=== PATIENT | female | born 1945 | race Hispanic/Latino ===

== ENCOUNTER 2018-08-17 18:42 | Emergency (ER) | payer MEDICARE ==
[2018-08-17] MEDS ORDERED: Sodium Chloride 0.9% 500 ML IV STA (20:16)
[2018-08-17] MEDS ORDERED: Morphine 4 MG/ML VIAL ONE ×2 (20:35→23:04)
[2018-08-17 20:48] LABS: BASO % 0.3 % (0.0-2.0); EOS % 0.1 % (0.0-4.0); HEMOGLOBIN 14.5 g/dL (12.0-16.0); LYMPH # 0.5 K/uL (1.0-4.3); LYMPH % 5.2 % (20.0-40.0); MEAN CELL VOLUME 89.3 fl (81.0-99.0); MEAN CORPUSCULAR HEMOGLOBIN 29.1 pg (27.0-31.0); MEAN CORPUSCULAR HGB CONC 32.6 g/dL (33.0-37.0); MEAN PLATELET VOLUME 9.1 fl (7.2-11.7); MONO # 0.3 K/uL (0.0-0.8); MONO % 3.4 % (0.0-10.0); NEUT # 8.7 K/uL (1.8-7.0); NRBC % 0.1 % (0.0-0.0); PLATELET COUNT 183 K/uL (130-400); PROTHROMBIN TIME 11.2 Seconds (9.8-13.1); RBC 4.97 Mil/uL (3.80-5.20); RED CELL DISTRIBUTION WIDTH 14.6 % (11.5-14.5); WHITE BLOOD COUNT 9.6 K/uL (4.8-10.8)
[2018-08-17] MEDS ORDERED: DiphenhydrAMINE 50 mg/ml Inj IVP STA (20:50)
[2018-08-17] MEDS ORDERED: DiphenhydrAMINE 50 mg/ml Inj ONE (20:50)
[2018-08-17 20:51] LABS: PARTIAL THROMBOPLASTIN TIME 34.4 Seconds (25.6-37.1)
[2018-08-17 20:52] LABS: BLOOD UREA NITROGEN 27 mg/dl (7-17); CALCIUM 9.9 mg/dL (8.4-10.2); GFR NON-AFRICAN AMERICAN 55; LIPASE 45 U/L (23-300)
[2018-08-17] MEDS ORDERED: Morphine 4 MG/ML VIAL IVP STA ×2 (20:52→23:00)
[2018-08-17 21:01] LABS: ALB/GLOB RATIO 1.4 (1.0-2.1); ALBUMIN 4.9 g/dL (3.5-5.0); ALT/SGPT 27 U/L (9-52); AST/SGOT 42 U/L (14-36)
--- NOTE | 2018-08-17 21:23 | ED PDOC ---
HPI: Abdomen Time Seen by Provider: 08/17/18 19:23 Chief Complaint (Nursing): Abdominal Pain Chief Complaint (Provider): Abdominal Pain History Per: Patient History/Exam Limitations: no limitations Onset/Duration Of Symptoms: Hrs (x8) Current Symptoms Are (Timing): Still Present Location Of Pain/Discomfort: RLQ Additional Complaint(s): 73 year old female, with a past medical history of fibromyalgia and HTN from [place], presents to the ED with a sudden onset of constant right sided abdominal pain and mid flank pain since around 14:00 today while carrying a new born baby. Patient reports pain radiates to her back and to her RLQ and is wo rsening since onset. Patient had an episode of nonbloody and nonbilious vomit and some nonbloody loose stools but no diarrhea. She denies urinary symptoms and states she is normally on Percocet and took one extra for pain with no relief. Denies fever or appetite for food. Last time patient ate was breakfast this morning. PMD: none provided Past Medical History Reviewed: Historical Data, Nursing Documentation, Vital Signs Vital Signs: Last Vital Signs Temp 98.4 F 08/17/18 19:11 Pulse 105 H 08/17/18 19:11 Resp 16 08/17/18 19:11 BP 156/101 H 08/17/18 19:11 Pulse Ox 100 08/17/18 19:11 - Medical History PMH: No Chronic Diseases - Surgical History Other surgeries: Right hip surgery and often dislocation; left knee surgery; partial hysterectomy - Family History Family History: States: No Known Family Hx - Social History Current smoker - smoking cessation education provided: No - Home Medications Home Medications: Ambulatory Orders Medication Instructions Recorded Nitrofurantoin Macrocrystals 1 cap PO BID #14 cap 08/17/18 [Macrobid] Ondansetron ODT [Zofran ODT] 1 odt PO Q6 PRN #20 odt 08/17/18 RX: traMADol [Ultram] 50 mg PO TID #15 tab 08/17/18 Tamsulosin [Flomax] 0.4 mg PO DAILY #14 cap 08/17/18 - Allergies Allergies/Adverse Reactions: Allergies Allergy/AdvReac Type Severity Reaction Status Date / Time ketamine Allergy ANAPHYLAXIS Verified 08/17/18 19:16 levofloxacin [From Levaquin] Allergy ANAPHYLAXIS Verified 08/17/18 19:16 Review of Systems ROS Statement: Except As Marked, All Systems Reviewed And Found Negative Gastrointestinal: Positive for: Vomiting, Abdominal Pain (right sided abdominal pain and flank pain). Negative for: Diarrhea Genitourinary Female: Negative for: Dysuria, Hematuria Physical Exam - Reviewed Nursing Documentation Reviewed: Yes Vital Signs Reviewed: Yes - Physical Exam Appears: Positive for: In Acute Distress (painful distress) Head Exam: Positive for: ATRAUMATIC, NORMOCEPHALIC Skin: Positive for: Warm, Dry Eye Exam: Positive for: EOMI, PERRL ENT: Positive for: Other (dry mucous membranes) Neck: Positive for: Painless ROM, Supple Cardiovascular/Chest: Positive for: Regular Rate, Rhythm. Negative for: Murmur Respiratory: Positive for: Normal Breath Sounds. Negative for: Wheezing Gastrointestinal/Abdominal: Positive for: Soft, Tenderness (RLQ and right lateral abdominal tenderness), Other ((-) Gibson's sign). Negative for: Mass, Distended, Guarding, Rebound Back: Positive for: Normal Inspection. Negative for: L CVA Tenderness, R CVA Tenderness Extremity: Positive for: Normal ROM. Negative for: Deformity Lymphatic: Negative for: Adenopathy Neurologic/Psych: Positive for: Alert. Negative for: Motor/Sensory Deficits - Laboratory Results Result Diagrams: 08/17/18 20:34 08/17/18 20:34 Lab Results: PT 11.2 Seconds (9.8-13.1) 08/17/18 20:34 INR 1.0 08/17/18 20:34 APTT 34.4 Seconds (25.6-37.1) 08/17/18 20:34 Total Bilirubin 0.9 mg/dl (0.2-1.3) 08/17/18 20:34 AST 42 U/L (14-36) H 08/17/18 20:34 ALT 27 U/L (9-52) 08/17/18 20:34 Alkaline Phosphatase 102 U/L (38-126) 08/17/18 20:34 Total Protein 8.3 G/DL (6.3-8.2) H 08/17/18 20:34 Albumin 4.9 g/dL (3.5-5.0) 08/17/18 20:34 Globulin 3.4 gm/dL (2.2-3.9) 08/17/18 20:34 Albumin/Globulin Ratio 1.4 (1.0-2.1) 08/17/18 20:34 Lipase 45 U/L (23-300) 08/17/18 20:34 - ECG O2 Sat by Pulse Oximetry: 100 (RA) Pulse Ox Interpretation: Normal Medical Decision Making Medical Decision Making: Initial Impression: RLQ pain Differential includes but not limited to appendicitis, pyelonephritis, renal colic, enteritis, mesenteric ischemia Initial Plan: --Type and screen stat --CT abd/pelvis --CMP --Lactic acid stat --Lipase stat --PTT --Prothrombin time --Benadryl 25mg IV --Morphine 4mg IV --Sodium chloride 1000mL IV --Toradol 15mg IV --Zofran 4mg IV --Blood culture --Urine culture --Urinalysis Name: PRABHU PINO Exam Date: Aug 17, 2018 10:07:40 PM EST Modality Type: CT Description: CT - ABDOMEN AND PELVIS WITH CORONAL AND SAGITTAL MPRS Gender: F Laterality: Not applicable : 49 Referring Physician: Pamela Denis EXAM: CT Abdomen and Pelvis with IV contrast CLINICAL HISTORY: Back/abd pain, vomiting TECHNIQUE: Axial computed tomography images of the abdomen and pelvis with intravenous contrast. 678.77 mGy-cm CONTRAST: With; [id number] 90ML COMPARISON: None provided. FINDINGS: LUNG BASES: Mild atelectasis at the lung bases. LIVER: Unremarkable. GALLBLADDER AND BILE DUCTS: The gallbladder appears within normal limits. No radioopaque gallstones are seen. No biliary ductal dilatation is evident. PANCREAS: Unremarkable. SPLEEN: Unremarkable. ADRENAL GLANDS: Unremarkable. KIDNEYS, URETERS, AND BLADDER: There is moderate to severe right hydroureteronephrosis with perinephric stranding and fluid. Given the presence of fluid, the possibility of ruptured calyx not excluded. The ureter is distended all the way to the ureterovesicular junction where there is a calculus measuring approximately 4 mm on series 2, image 89. It is unclear if this has passed from the right ureterovesicular junction into bladder or not. There is some enhancement of the right ureteral wall suggesting ureteritis. Again, please correlate clinically. The partially distended bladder appears otherwise grossly unremarkable. STOMACH AND BOWEL: There is significant constipation the colon. No evidence for bowel obstruction. APPENDIX: No evidence of acute appendicitis on CT examination. PERITONEUM: No pneumoperitoneum. LYMPH NODES: No lymphadenopathy. REPRODUCTIVE: Unremarkable as visualized. VASCULATURE: No evidence of abdominal aortic aneurysm. BONES: There are bilateral hip prostheses which lead to beam hardening artifact in the mid evaluation the pelvis. There are moderate to severe multilevel degenerative spine changes. IMPRESSION: 1. There is moderate to severe right hydroureteronephrosis with perinephric stranding and fluid. Given the presence of fluid, the possibility of ruptured calyx not excluded. The ureter is distended all the way to the ureterovesicular junction where there is a calculus measuring approximately 4 mm on series 2, image 89. It is unclear if this has passed from the right ureterovesicular junction into bladder or not. 2. There is some enhancement of the right ureteral wall suggesting ureteritis. Again, please correlate clinically. 3. There are bilateral hip prostheses which lead to beam hardening artifact in the mid evaluation the pelvis. 4. There is significant constipation in the colon. Electronically signed on Aug 17, 2018 11:13:43 PM EST by: Manny Ramirez M.D., LISSY Certified By [facility] Trained [facility] and CT Specialist Scribe Attestation: Documented by Eddie Muller acting as a scribe for Pamela Denis MD. Provider Scribe Attestation: All medical record entries made by the Scribe were at my direction and personally dictated by me. I have reviewed the chart and agree that the record accurately reflects my personal performance of the history, physical exam, medical decision making, and the department course for this patient. I have also personally directed, reviewed, and agree with the discharge instructions and disposition. Disposition - Clinical Impression Clinical Impression: Renal calculus Counseled Patient/Family Regarding: Studies Performed, Diagnosis, Need For Followup, Rx Given - Disposition Disposition: Routine/Home Disposition Time: 23:28 Condition: STABLE Additional Instructions: PLEASE FOLLOWUP WITH A UROLOGIST SOON YOU RETURN TO [place] FOR FURTHER EVALUATION AND MANAGEMENT Prescriptions: Nitrofurantoin Macrocrystals [Macrobid] 1 cap PO BID #14 cap Ondansetron ODT [Zofran ODT] 1 odt PO Q6 PRN #20 odt PRN Reason: Nausea/Vomiting Tamsulosin [Flomax] 0.4 mg PO DAILY #14 cap RX: traMADol [Ultram] 50 mg PO TID #15 tab Instructions: Kidney Stones (DC)
[2018-08-17 21:29] LABS: SQUAMOUS EPITHIAL 2 /hpf (0-5); URINE BACTERIA RARE (<OCC); URINE BILIRUBIN NEGATIVE (NEGATIVE); URINE CLARITY SLIGHTY-CLOUDY (Clear); URINE COLOR YELLOW (YELLOW); URINE GLUCOSE (UA) NEG (NEGATIVE); URINE LEUKOCYTE ESTERASE TRACE Leu/uL (Negative); URINE PROTEIN NEGATIVE (NEGATIVE); URINE UROBILINOGEN 0.2-1.0 mg/dL (0.2-1.0)
[2018-08-17 21:44] LABS: URINE BLOOD SMALL (NEGATIVE)
[2018-08-17] MEDS ORDERED: Sodium Chloride 0.9% 50 ML IV ONE (22:03)
[2018-08-17] MEDS ORDERED: Iohexol 300 100 ML IJ ONE (22:03)
[2018-08-17 22:17] LABS: BANDS 1 % (0-2); LYMPHOCYTE 8 % (20-50); MONOCYTE 3 % (0-10); NEUTROPHIL 88 % (42-75); PLATELET ESTIMATE NORMAL (NORMAL); TOTAL CELLS COUNTED 100; TOXIC GRANULATION PRESENT
[2018-08-17 23:38] VITALS: BP 132/77; PULSE 96; RESP 18; TEMP 98
--- NOTE | 2018-08-18 14:20 | CT ---
Date of service: 08/17/2018 PROCEDURE: CT Abdomen and Pelvis with contrast HISTORY: rlq pain COMPARISON: None. TECHNIQUE: Contrast dose: 90 mL Omnipaque 300 Radiation dose: Total exam DLP = 678.77 mGy-cm. This CT exam was performed using one or more of the following dose reduction techniques: Automated exposure control, adjustment of the mA and/or kV according to patient size, and/or use of iterative reconstruction technique. FINDINGS: LOWER THORAX: Unremarkable. LIVER: Unremarkable. No gross lesion or ductal dilatation. GALLBLADDER AND BILE DUCTS: Unremarkable. PANCREAS: Unremarkable. No gross lesion or ductal dilatation. SPLEEN: Unremarkable. ADRENALS: Unremarkable. No mass. KIDNEYS AND URETERS: Right hydroureteronephrosis. Multiple 2-3 mm nonobstructing right renal calculi. 3 mm nonobstructing calculus lower pole left kidney. There is right perinephric fluid and periureteric stranding. There is a 5 mm calculus apparently within the urinary bladder at the right bladder base or alternatively within the right ureteral orifice.. VASCULATURE: Unremarkable. No aortic aneurysm. No aortic atherosclerotic calcification or mural plaque present. BOWEL: Unremarkable. No obstruction. No gross mural thickening. APPENDIX: Normal appendix. PERITONEUM: There is trace ascites. LYMPH NODES: Unremarkable. No enlarged lymph nodes. BLADDER: Unremarkable. REPRODUCTIVE: Postmenopausal uterus. Evaluation of the pelvis is grossly limited by beam hardening artifact arising from bilateral hip prostheses. BONES: Bilateral hip prostheses. No acute fracture. Grade 1 anterolisthesis at L3-4 without associated spondylolysis. Likely degenerative in origin. OTHER FINDINGS: None. IMPRESSION: Right hydroureteronephrosis. 5 mm calculus either within right ureteral orifice or sitting dependently at the right bladder base. Bilateral nonobstructing small renal calculi. Right Ro nephric and periureteric fluid. Trace ascites. The preliminary findings for this examination were reported by [facility] at 11:13 p.m. on 08/17/2018. There is concurrence of this report with the preliminary findings.
[2018-08-20 10:46] VITALS: O2SAT 100
== END 2018-08-18 00:09 | disposition home or self-care (01) ==
LOC: H.ER 18:42
DX: N20.0 Calculus of kidney (principal); Z88.1 Allergy status to other antibiotic agents; Z79.899 Other long term (current) drug therapy; K59.00 Constipation, unspecified
CPT/HCPCS: 74177; 80053; 81003; 83605; 83690; 85025; 85610; 85730; 86850; 86900; 87040; 87086; 96361; 96374; 96375; 96376; 99285; J1200; J1885; J2270; J2405; J7030; Q9967